=== PATIENT | male | born 1970 | race African-American/Black ===

== ENCOUNTER 2018-06-13 12:46 | Observation (INO) | payer OTHER ==
[~2018-06-13] VITALS: Ht 175.3 cm; Wt 72.8 kg
[2018-06-13] MEDS ORDERED: SODIUM CHLORIDE 0.9% 1000ML 1,000 ML IV STA (13:12)
[2018-06-13] MEDS ORDERED: HYDROCODONE/APAP 10MG-325MG TAB PO ONE (13:15)
[2018-06-13] MEDS ORDERED: IBUPROFEN 600 MG TAB PO STA (13:21)
[2018-06-13 13:52] LABS: BASOPHILS % 0.3 % (0.0-1.0); HEMATOCRIT 44.7 % (38.2-49.6); HEMOGLOBIN 14.3 g/dL (14.0-18.0); LYMPHOCYTES # (AUTO) 0.4 (1.0-3.2); LYMPHOCYTES % 9.8 % (18.0-39.1); MEAN CORPUSCULAR HEMOGLOBIN 21.3 pg (28-32); MEAN CORPUSCULAR VOLUME 66.6 fL (81-99); MONOCYTES # (AUTO) 0.2 (0.2-0.8); MONOCYTES % 6.1 % (4.4-11.3); NEUTROPHILS # (AUTO) 3.1 (2.1-6.9); NEUTROPHILS % 83.3 % (38.7-80.0); PLATELET COUNT 178 x10e3/uL (140-360); RED BLOOD COUNT 6.71 x10e6/uL (4.3-5.7); RED CELL DISTRIBUTION WIDTH 18.3 % (11.7-14.4)
[2018-06-13] MEDS ORDERED: CLINDAMYCIN PHOS 900MG/ 50ML 50 ML IV SCH (14:00)
[2018-06-13 14:12] LABS: ALANINE AMINOTRANSFERASE 63 IU/L (0-55); ALBUMIN 3.3 g/dL (3.5-5.0); ALBUMIN/GLOBULIN RATIO 0.9 (0.8-2.0); ALKALINE PHOSPHATASE 94 IU/L (40-150); ANION GAP 13.5 mmol/L (8-16); BLOOD UREA NITROGEN 12 mg/dL (7-26); BUN/CREATININE RATIO 8 (6-25); CARBON DIOXIDE 23 mmol/L (22-29); CHLORIDE 97 mmol/L (98-107); CREATININE, SERUM 1.43 mg/dL (0.72-1.25); EST GLOMERULAR FILTRATION RATE > 60 ML/MIN (60-); GLUCOSE 123 mg/dL (74-118); MAGNESIUM 1.7 MG/DL (1.3-2.1); POTASSIUM 3.5 mmol/L (3.5-5.1); SODIUM 130 mmol/L (136-145)
[2018-06-13 14:15] LABS: BAND NEUTROPHILS % (MANUAL) 1 %; LYMPHOCYTES % (MANUAL) 10 % (19-48); MONOCYTES % (MANUAL) 2 % (3.4-9.0); NEUTROPHILS % (MANUAL) 85 % (40-74); PLATELET MORPHOLOGY COMMENT NORMAL
[2018-06-13] MEDS ORDERED: ONDANSETRON HCL INJ 2 MG/ML VIAL IV PRN (14:15)
[2018-06-13] MEDS ORDERED: VANCOMYCIN 1GM/NS 250 ML 250 ML IV ONE (14:15)
[2018-06-13] MEDS ORDERED: MORPHINE SULFATE INJ 4 MG/ML INJ IV PRN (14:15)
[2018-06-13 14:16] LABS: MICROCYTOSIS SLIGHT; PLATELET ESTIMATE SLIGHTLY INCREASED; RBC MORPHOLOGY COMMENT NORMAL
[2018-06-13 14:47] LABS: CLARITY,URINE CLEAR (CLEAR); COLOR,URINE YELLOW (YELLOW)
[2018-06-13 14:48] LABS: BILIRUBIN,URINE NEGATIVE (NEGATIVE); KETONES,URINE NEGATIVE (NEGATIVE); LEUKOCYTE ESTERASE ,URINE NEGATIVE (NEGATIVE); NITRITE,URINE NEGATIVE (NEGATIVE); PROTEIN,URINE DIPSTICK NEGATIVE (NEGATIVE); URINE UROBILINOGEN 0.2 mg/dL (0.2 - 1)
[2018-06-13 14:51] LABS: EPITHELIAL CELLS,URINE FEW /LPF; RBC,URINE 0-5 /HPF (0-5); WBC,URINE (MAN) 0-5 /HPF (0-5)
[2018-06-13] MEDS ORDERED: AMLODIPINE BESY10 MG PO (15:38)
[2018-06-13] MEDS ORDERED: HYDROCHLOROTHIA25 MG (15:38)
[2018-06-13] MEDS ORDERED: DOXYCYCLINE HY100 MG PO (15:38)
[2018-06-13 15:43] VITALS: BP 133/80
[2018-06-13 15:53] VITALS: BP 133/80
[2018-06-13 17:03] VITALS: BP 148/78
[2018-06-13] MEDS: SODIUM CHLORIDE 0.9% 1000ML 1,000 ML IV SCH (17:21)
[2018-06-13] MEDS: PIPER-TAZ 3.375 GM 50 ML IV SCH ×2 (17:21→23:38)
[2018-06-13 20:50] VITALS: BP 117/56
[2018-06-13] MEDS: ACETAMINOPHEN 325 MG TAB PO PRN (23:56)
[2018-06-14] VITALS (9 sets, daily range): BP systolic 116–177; BP diastolic 55–68
[2018-06-14] MEDS: SODIUM CHLORIDE 0.9% 1000ML 1,000 ML IV SCH ×3 (04:27→20:03)
[2018-06-14] MEDS: PIPER-TAZ 3.375 GM 50 ML IV SCH ×4 (05:04→23:20)
[2018-06-14] MEDS: ACETAMINOPHEN 325 MG TAB PO PRN ×2 (05:04→16:24)
[2018-06-14 05:25] LABS: BASOPHILS % 0.3 % (0.0-1.0); EOSINOPHILS % 0.5 % (0.0-6.0); HEMATOCRIT 38.1 % (38.2-49.6); HEMOGLOBIN 12.2 g/dL (14.0-18.0); LYMPHOCYTES # (AUTO) 0.6 (1.0-3.2); LYMPHOCYTES % 14.6 % (18.0-39.1); MEAN CORPUSCULAR HEMOGLOBIN 21.3 pg (28-32); MEAN CORPUSCULAR VOLUME 66.4 fL (81-99); MONOCYTES # (AUTO) 0.3 (0.2-0.8); NEUTROPHILS # (AUTO) 2.9 (2.1-6.9); NEUTROPHILS % 75.3 % (38.7-80.0); PLATELET COUNT 160 x10e3/uL (140-360); RED BLOOD COUNT 5.74 x10e6/uL (4.3-5.7); RED CELL DISTRIBUTION WIDTH 17.5 % (11.7-14.4)
[2018-06-14] MEDS: CLINDAMYCIN 300MG 50 ML IV SCH ×3 (05:37→21:40)
[2018-06-14 06:00] LABS: ALANINE AMINOTRANSFERASE 56 IU/L (0-55); ALBUMIN 2.7 g/dL (3.5-5.0); ALBUMIN/GLOBULIN RATIO 0.9 (0.8-2.0); ALKALINE PHOSPHATASE 98 IU/L (40-150); ANION GAP 13.8 mmol/L (8-16); BLOOD UREA NITROGEN 12 mg/dL (7-26); BUN/CREATININE RATIO 9 (6-25); CALCIUM 7.8 mg/dL (8.4-10.2); CARBON DIOXIDE 23 mmol/L (22-29); CHLORIDE 102 mmol/L (98-107); CREATININE, SERUM 1.31 mg/dL (0.72-1.25); EST GLOMERULAR FILTRATION RATE > 60 ML/MIN (60-); GLUCOSE 115 mg/dL (74-118); POTASSIUM 3.8 mmol/L (3.5-5.1); SODIUM 135 mmol/L (136-145)
[2018-06-14] MEDS: HYDROCHLOROTHIAZIDE 25 MG TAB PO SCH (08:30)
[2018-06-14] MEDS: AMLODIPINE BESYLATE 10 MG TAB PO SCH (08:30)
--- NOTE | 2018-06-14 11:57 | History and Physical ---
PRIMARY CARE PHYSICIAN: Dr. Sam CHIEF COMPLAINT: Fever and redness of his legs. HISTORY OF PRESENT ILLNESS: This is a 47-year-old man with a history of prurigo nodularis and cellulitis of his legs, now developing redness of the legs bilaterally and subjective. This has been ongoing for about 1 day. Therefore, he came to the hospital for further evaluation and management. Denies any headache, chest pain or shortness of breath. Denies any dizziness. PAST MEDICAL HISTORY: Hypertension, cellulitis of the legs, prurigo nodularis. PAST SURGICAL HISTORY: Carpal tunnel. ALLERGIES: PER ELECTRONIC MEDICAL RECORDS. FAMILY HISTORY/SOCIAL HISTORY: Patient is . He has 1 child. No alcohol or illicits or cigarettes. MEDICATIONS: Per electronic medical record. REVIEW OF SYSTEMS: Denies any dizziness, chest pain, shortness of breath. Denies any headache, nausea, vomiting, diarrhea, leg pain. PHYSICAL EXAMINATION VITAL SIGNS: Have been reviewed. GENERAL: A tired-appearing man resting in bed. HEENT: Anicteric. CARDIOVASCULAR: Normal S1 and S2. LUNGS: Moderate breath sounds. ABDOMEN: Soft, nontender and nondistended. EXTREMITIES: He has nodular lesions on his arms. He has nodular lesions on both legs. He has underlying erythema of the legs. There is trace edema of the legs bilaterally. SKIN: Dry. PSYCHIATRIC: Flat affect. NEUROLOGICAL: Alert and oriented. Moving all extremities. LABS: Reviewed. MEDICATIONS: Reviewed. ASSESSMENT: This is a 47-year-old man with: 1. Bilateral leg cellulitis. 2. Hyponatremia. 3. Acute transaminitis. 4. Prurigo nodularis. 5. Hypertension. PLAN 1. Continue with clindamycin and Zosyn. 2. Follow up cultures. 3. Follow up sodium level. 4. Await clinical improvement. Job#: [id number] SC
[2018-06-14] MEDS: ENOXAPARIN SOD INJ 40 MG/0.4 ML SYR SC SCH (17:16)
[2018-06-15] VITALS (8 sets, daily range): BP systolic 103–140; BP diastolic 51–76
[2018-06-15] MEDS: ACETAMINOPHEN 325 MG TAB PO PRN (00:50)
[2018-06-15] MEDS: SODIUM CHLORIDE 0.9% 1000ML 1,000 ML IV SCH ×2 (04:00→06:03)
[2018-06-15] MEDS: PIPER-TAZ 3.375 GM 50 ML IV SCH ×4 (05:11→23:59)
[2018-06-15] MEDS: CLINDAMYCIN 300MG 50 ML IV SCH (05:11)
[2018-06-15] MEDS: MINOCYCLINE HCL 50 MG CAP PO SCH ×2 (08:53→20:48)
[2018-06-15] MEDS: FUROSEMIDE INJ 10 MG/ML 2 ML VIAL IV SCH ×2 (08:53→17:32)
[2018-06-15] MEDS: HYDROCHLOROTHIAZIDE 25 MG TAB PO SCH (08:53)
[2018-06-15] MEDS: AMLODIPINE BESYLATE 10 MG TAB PO SCH (08:53)
[2018-06-15] MEDS: ENOXAPARIN SOD INJ 40 MG/0.4 ML SYR SC SCH (17:32)
--- NOTE | 2018-06-15 22:43 | Progress Note ---
DATE: June 15, 2018 TIME OF SERVICE: 6:15 a.m. SUBJECTIVE: Overnight, some rash from the clindamycin. REVIEW OF SYSTEMS: Denies any dizziness, chest pain, shortness of breath, fever, chills, sweats, nausea, vomiting, diarrhea. PHYSICAL EXAMINATION VITAL SIGNS: Reviewed. GENERAL: A tired appearing man, resting in bed. HEENT: Anicteric. CARDIOVASCULAR: Normal S1, S2. LUNGS: Moderate breath sounds. ABDOMEN: Soft, nontender, nondistended. EXTREMITIES: He has notable lesions on the arm. He has notable lesions on both legs. He has underlying erythema of the legs bilaterally and trace edema of bilateral legs. SKIN: Dry. PSYCHIATRIC: Flat affect. NEUROLOGICAL: Alert and oriented. Moving all extremities. LABS: Reviewed. MEDICATIONS: Reviewed. ASSESSMENT: A 47-year-old man. 1. Bilateral leg cellulitis. 2. Hyponatremia. 3. Acute transaminitis. 4. Prurigo nodularis. 5. Sepsis. PLAN 1. Stop clindamycin, use minocycline instead and continue with Zosyn. 2. Follow up cultures. 3. Give a dose of Lasix now. 4. Discontinue fluids. 5. Follow up labs. Job#: [id number] IRASEMA
[2018-06-16] VITALS: BP 127/60
[2018-06-16 04:00] VITALS: BP 121/57
[2018-06-16] MEDS: PIPER-TAZ 3.375 GM 50 ML IV SCH (05:30)
[2018-06-16] MEDS ORDERED: MINOCYCLINE HCL50 MG PO (07:23)
[2018-06-16] MEDS ORDERED: FUROSEMIDE40 MG PO (07:23)
[2018-06-16 08:26] VITALS: BP 116/60
[2018-06-16] MEDS: HYDROCHLOROTHIAZIDE 25 MG TAB PO SCH (10:00)
[2018-06-16] MEDS: AMLODIPINE BESYLATE 10 MG TAB PO SCH (10:00)
[2018-06-16] MEDS: MINOCYCLINE HCL 50 MG CAP PO SCH (10:00)
[2018-06-16] MEDS: FUROSEMIDE INJ 10 MG/ML 2 ML VIAL IV SCH (10:00)
[2018-06-16 11:19] VITALS: BP 121/60
== END 2018-06-16 11:26 | disposition home or self-care (01) ==
LOC: ER 12:46 → ERHOLD 14:03 → IMCU 15:11
PROVIDERS: ADMIT Internal Medicine; ATTEND Internal Medicine
DX: L03.116 Cellulitis of left lower limb (principal); L03.115 Cellulitis of right lower limb; I89.0 Lymphedema, not elsewhere classified; L28.1 Prurigo nodularis; J45.909 Unspecified asthma, uncomplicated; I10 Essential (primary) hypertension; E87.1 Hypo-osmolality and hyponatremia; R74.0 Nonspecific elevation of levels of transaminase and lactic acid dehydrogenase [LDH]; Z88.6 Allergy status to analgesic agent; L27.0 Generalized skin eruption due to drugs and medicaments taken internally; T36.8X5A Adverse effect of other systemic antibiotics, initial encounter; Y92.230 Patient room in hospital as the place of occurrence of the external cause
CPT/HCPCS: 36415 ×2; 80053 ×2; 81001; 83605; 83735; 85025 ×2; 87040; 87086; 96361; 99284; G0378 ×4; J1650 ×2; J1940 ×2; J2270; J2543 ×4; J3370; J7030 ×2